=== PATIENT | female | born 1980 | race Caucasian/White ===

== ENCOUNTER 2024-03-07 09:47 | Day surgery (SDC) | payer OTHER ==
[~2024-03-07] VITALS: Ht 160 cm; Wt 70.3 kg
[2024-03-07 10:24] LABS: HCG,QUAL RESULT NEGATIVE (NEGATIVE)
[2024-03-07] MEDS ORDERED: IBUPROFEN 600 MG TABLET PO ONE (11:15)
[2024-03-07] MEDS ORDERED: ONDANSETRON HCL 4 MG/2 ML VIAL IVP PRN (11:15)
[2024-03-07] MEDS ORDERED: HYDROmorphone 1 MG/ML INJ. CARTRIDGE IVP PRN (11:15)
[2024-03-07] MEDS ORDERED: KETOROLAC TROMETHAMINE 30 MG VIAL IVP PRN (11:15)
[2024-03-07] MEDS ORDERED: PROPOFOL 200MG/ 20ML VIAL (DIPRIVAN) IV ONE (11:54)
[2024-03-07 13:16] VITALS: O2SAT 100
[2024-03-07 13:46] VITALS: BP_SYST 116; PULSE 69; RESP 16; TEMP 98.3
== END 2024-03-07 14:40 | disposition home or self-care (01) ==
LOC: SDS 09:47 → SMU 09:47 → SDS 14:40
PROVIDERS: ATTEND Obstetrics & Gynecology
DX: N92.0 Excessive and frequent menstruation with regular cycle (principal); D25.0 Submucous leiomyoma of uterus; Z88.8 Allergy status to other drugs, medicaments and biological substances; Z98.890 Other specified postprocedural states; Z79.899 Other long term (current) drug therapy
CPT/HCPCS: 84703; 87081; J2704; J3010; J3465; J7120